=== PATIENT | female | born 2000 | race Caucasian/White ===

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

== ENCOUNTER 2022-01-10 01:06 | Emergency (ER) | payer OTHER, SELFPAY ==
[2022-01-10 01:13] VITALS: BP 128/79; BP 134/91; PULSE 102; PULSE 118; RESP 20; TEMP 36.8; O2SAT 100; O2SAT 99; BMI 32.5
--- NOTE | 2022-01-10 01:13 | ED_ITS ---
HPI - Overdose General Chief Complaint: Overdose Stated Complaint: overdose Time Seen by Provider: 01/10/22 01:13 Source: patient Mode of arrival: EMS Limitations: no limitations History of Present Illness HPI Narrative: used perc 30 - received 8mg IN narcan prior to arrival complaint: accidental overdose Onset (ago): minute(s) (just prior to arrival ) Timing confirmed by: other (friend) Context: Accidental Overdose: wanted to get high Associated symptoms: other (denies any symptoms) Treatments Prior to Arrival: narcan (8mg IN) Related Data Allergies Allergy/AdvReac Type Severity Reaction Status Date / Time No Known Allergies Allergy Verified 11/29/20 13:27 Review of Systems Review of Systems: Constitutional : No Fever, No Chills ENT/Mouth : No Ear Pain, No Nasal Congestion, No sore throat Eyes: No Eye Pain, No Swelling, No Redness Cardiovascular : No Chest Pain, No SOB Respiratory : No Cough, No Sputum, No Dyspnea Gastrointestinal : No Nausea, No Vomiting, No Diarrhea, No Hematochezia, No Melena Genitourinary : No Dysuria, No Urinary Frequency, No Hematuria Musculoskeletal : No Myalgias Skin : No Skin Lesions, No rash Neuro : No Weakness, No Numbness, No Paresthesias, No Dizziness, No Headache Psych : no Anxiety, no Depression, no SI/HI All other systems reviewed and are negative [facility] Past Medical History Attestation statement: The following information was validated with the patient. Medical History No known health problems Surgical History No history of previous surgery Social History Social History (Updated 01/10/22 @ 01:16 by Elsy Rodriguez DO) Alcohol intake: never Patient Tobacco Use Status: Never used Tobacco Substance Use Type: Opiates Advance Directives: No Physical Exam Vital Signs: Vital Signs: Last Vital Signs Temp 98.2 F 01/10/22 01:13 Pulse 102 H 01/10/22 01:13 Resp 20 01/10/22 01:13 BP 128/79 01/10/22 01:13 Pulse Ox 99 01/10/22 01:13 BMI result Body Mass Index 32.5 Appearance: Alert. Oriented X3. No acute distress. Eyes: Pupils equal, round and reactive to light. ENT: Pharynx normal. Atraumatic Neck: Normal inspection. Neck supple. CVS: Normal heart rate and rhythm. Pulses normal. Respiratory: No respiratory distress. Breath sounds normal. Abdomen: Soft and non-tender. Skin: Skin warm and dry. Normal skin color. Normal skin turgor. Extremities: No lower extremity edema. Neuro: Oriented X 3. No motor deficit. No sensory deficit. Course Course Course Narrative: GCS 15 stable for DC, no need for repeat narcan MDM - Overdose MDM Narrative Medical decision making narrative: 21 yo female accidental opiate overdose - denies SI, no trauma, declines detox or SUDE evaluations, agrees to observation and narcan to take home. We discussed the comprehensive care clinic but she states she doesn't have a problem and doesn't want resources. Discharge Plan Discharge Clinical Impression: Opiate overdose Patient Disposition: Home, Self-Care Instructions: Opioid Safety (ED), Adult Overdose (ED) Additional Instructions: return to ED for any worsening symptoms or concerns
--- NOTE | 2022-01-10 01:39 | PC.NURSE ---
Patient arrived via [facility] for overdose on heroine and percocet. Patient given per EMS 8mg narcan intranasal. Patient does not want any help with drug addiction. ordered narcan intranasal for home. Patient has already called for a ride. Encouraged to stay till 230am per Dr. Rodriguez.
[2022-01-10] MEDS: Naloxone HCl Nasal TAKE HOME 4 MG SPRAY NOSTRILALT (01:58)
== END 2022-01-10 02:43 | disposition home or self-care (01) ==
PROVIDERS: Emergency Provider Emergency Medicine
DX: T40.0X1A Poisoning by opium, accidental (unintentional), initial encounter (principal); Y92.9 Unspecified place or not applicable
CPT/HCPCS: 99283; 99284

== ENCOUNTER 2024-02-06 22:59 | Emergency (ER) | payer OTHER, SELFPAY ==
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
[2024-02-06 23:11] VITALS: BP 132/90; BP 134/83; PULSE 74; PULSE 93; RESP 18; TEMP 36.7; O2SAT 100; O2SAT 99; BMI 36.1
[2024-02-06] MEDS: Lidocaine HCl 2 % MPF 5 ML VIAL INFILTRATI (23:25)
[2024-02-07] MEDS: Ibuprofen 600 MG TABLET PO (00:58)
[2024-02-07] MEDS: Acetaminophen 325 MG TABLET 975 MG PO (00:58)
[2024-02-07 01:05] VITALS: BP 133/82; PULSE 88; RESP 18; TEMP 36.9; O2SAT 100
[2024-02-07] MEDS: Bacitracin Oint 0.9 GM PACKET 1 APPL TOPICAL (01:05)
[2024-02-07 01:56] VITALS: BP 133/82; PULSE 88; RESP 18; TEMP 36.9; O2SAT 100
== END 2024-02-07 01:15 | disposition home or self-care (01) ==
PROVIDERS: Emergency Provider Internal Medicine
DX: S01.111A Laceration without foreign body of right eyelid and periocular area, initial encounter (principal); S80.11XA Contusion of right lower leg, initial encounter; V47.6XXA Car passenger injured in collision with fixed or stationary object in traffic accident, initial encounter; Y93.89 Activity, other specified; Y92.410 Unspecified street and highway as the place of occurrence of the external cause; Y99.9 Unspecified external cause status
CPT/HCPCS: 12052; 70450; 70486; 72125; 73560; 99284